=== PATIENT | female | born 1980 | race Caucasian/White ===

== ENCOUNTER 2016-11-11 01:45 | Emergency (ER) | payer OTHER ==
[~2016-11-11] VITALS: Ht 144.8 cm; Wt 69.4 kg
[~2016-11-11 01:45] MED LIST: ADVIL; EXCEDRINE
[2016-11-11 01:51] VITALS: BP 122/69
--- NOTE | 2016-11-11 04:37 | NUR ---
PATIENT LEFT WITHOUT BEING SEEN BY DR. UNGER. NO FURTHER CARE PROVIDED FOR PATIENT.
== END 2016-11-11 04:37 | disposition left against medical advice (07) ==
LOC: MED 01:45
DX: K08.89 Other specified disorders of teeth and supporting structures (principal); Z53.21 Procedure and treatment not carried out due to patient leaving prior to being seen by health care provider

== ENCOUNTER 2016-11-13 01:35 | Emergency (ER) | payer OTHER ==
[~2016-11-13] VITALS: Ht 144.8 cm; Wt 69.4 kg
[2016-11-13 01:42] VITALS: BP 115/76
--- NOTE | 2016-11-13 02:28 | NUR ---
Patient to bed 04.
--- NOTE | 2016-11-13 02:32 | NUR ---
PATIENT PRESENTS TO ED WITH LEFT LOWER TOOTHACHE . PT DENIES N/V/D; SKIN IS PINK/WARM/DRY; AAOX4 WITH EVEN AND STEADY GAIT; LUNGS CLEAR BL; HR EVEN AND REGULAR; PT DENIES ANY FEVER, CP, SOB, OR COUGH AT THIS TIME; PATIENT STATES PAIN OF 8/10 AT THIS TIME; VSS; PATIENT POSITIONED FOR COMFORT; HOB ELEVATED; BEDRAILS UP X2; BED DOWN. ER MD MADE AWARE OF PT STATUS.
--- NOTE | 2016-11-13 02:39 | NUR ---
Dr. Wyman evaluating patient at bedside.
[2016-11-13 03:07] VITALS: BP 115/76
== END 2016-11-13 03:08 | disposition home or self-care (01) ==
LOC: MED 01:35
DX: K04.7 Periapical abscess without sinus (principal)

== ENCOUNTER 2022-06-23 08:17 | Emergency (ER) | payer OTHER ==
[~2022-06-23] VITALS: Ht 157.5 cm; Wt 65.8 kg
[2022-06-23 08:23] VITALS: BP 131/76
--- NOTE | 2022-06-23 08:25 | NUR ---
PT BROUGHT TO ROOM FROM TRIAGE.
--- NOTE | 2022-06-23 08:40 | NUR ---
PT ASSESSED. CARE ASSUMED. PT ALERT, RESP EASY MM PINK, NO APPARENT DISTRESS
--- NOTE | 2022-06-23 08:45 | NUR ---
DR ORTIZ AT BEDSIDE
--- NOTE | 2022-06-23 09:25 | NUR ---
Patient discharged with v/s stable. Written and verbal after care instructions given and explained. Patient verbalized understanding. Ambulatory with steady gait. All questions addressed prior to discharge. Advised to follow up with PMD.
== END 2022-06-23 09:25 | disposition home or self-care (01) ==
LOC: MED 08:17
DX: M79.602 Pain in left arm (principal); R07.9 Chest pain, unspecified; F43.9 Reaction to severe stress, unspecified
CPT/HCPCS: 93005; 99283

== ENCOUNTER 2022-07-14 20:52 | Emergency (ER) | payer OTHER ==
[~2022-07-14] VITALS: Ht 149.9 cm; Wt 74.8 kg
[2022-07-14 21:53] VITALS: BP 122/72
--- NOTE | 2022-07-14 21:58 | NUR ---
FOLLOWING TRIAGE, PT SAYS, "MY BP IS OK, I'M GOING TO LEAVE. THAT IS WHAT I WAS WORRIED ABOUT" PT LWBS
== END 2022-07-14 22:00 | disposition left against medical advice (07) ==
LOC: MED 20:52
DX: R51.9 Headache, unspecified (principal); Z53.21 Procedure and treatment not carried out due to patient leaving prior to being seen by health care provider

== ENCOUNTER 2022-10-29 11:58 | Emergency (ER) | payer OTHER ==
[~2022-10-29] VITALS: Ht 149.9 cm; Wt 73.5 kg
[2022-10-29 12:02] VITALS: BP 126/93
[2022-10-29] MEDS ORDERED: MORPHINE SULFATE 4 MG/ML SYR IVP ONE (12:35)
[2022-10-29] MEDS ORDERED: NACL 0.9% 1,000 ML IV ONE (12:35)
[2022-10-29] MEDS ORDERED: ONDANSETRON 4 MG/2 ML VIAL IVP ONE (12:35)
--- NOTE | 2022-10-29 12:53 | NUR ---
41 yo/f presents to ed w c/o epigastric pain 8/10 pressure constant x1 day non-rad, +n/v (no blood noted), + constipation. denies fevers, chest pain or sob. pmh: denies allergies: denies
[2022-10-29 13:04] LABS: APPEARANCE,URINE CLEAR (CLEAR); BILIRUBIN,URINE 1+ (NEGATIVE); BLOOD, URINE 3+ (NEGATIVE); COLOR,URINE YELLOW (YELLOW); LEUKOCYTE ESTERASE ,URINE TRACE (NEGATIVE); NITRITE, URINE NEGATIVE (NEGATIVE); UGLUCOSE NEGATIVE (NEGATIVE)
[2022-10-29 13:05] LABS: BASOPHILS % (AUTO) 0.4 % (0.0-2.0); EOSINOPHILS # (AUTO) 0.6 K/uL (0-0.4); HEMATOCRIT 43.5 % (36-48); HEMOGLOBIN 14.5 g/dL (12.0-16.0); LYMPHOCYTES # (AUTO) 0.8 K/uL (2.5-16.5); LYMPHOCYTES % (AUTO) 13.8 % (20.5-51.1); MEAN CORPUSCULAR HEMOGLOBIN 29 pg (27-31); MEAN CORPUSCULAR HGB CONC 34 g/dL (33-37); MEAN CORPUSCULAR VOLUME 85.3 fL (80-94); MONOCYTES # (AUTO) 0.5 K/uL (0.8-1.0); MONOCYTES % (AUTO) 7.5 % (1.7-9.3); NEUTROPHILS # (AUTO) 4.2 K/uL (1.8-7.7); NEUTROPHILS % (AUTO) 69.3 % (42.2-75.2); PLATELET COUNT (AUTO) 432 K/uL (140-450); RED CELL DISTRIBUTION WIDTH 13.1 % (11.6-13.7); WHITE BLOOD COUNT (AUTO) 6.1 K/uL (4.8-10.8)
[2022-10-29 13:10] VITALS: BP 113/64
--- NOTE | 2022-10-29 13:11 | NUR ---
pt refusing [id number], requesting a diff type of pain med, zully patricia aware.
[2022-10-29 13:24] LABS: ALBUMIN 3.5 g/dL (3.4-5.0); ANION GAP 10.7 (8-16); CARBON DIOXIDE 25.7 mmol/L (21-32); CREATININE 0.6 mg/dL (0.6-1.3); POTASSIUM 3.4 mmol/L (3.5-5.1); TOTAL BILIRUBIN 0.5 mg/dL (0.0-1.0)
[2022-10-29] MEDS ORDERED: POLY17PD72 PO (13:29)
[2022-10-29] MEDS ORDERED: DOCU-299 PO (13:29)
[2022-10-29] MEDS ORDERED: CEPH-588 PO (13:30)
[2022-10-29] MEDS ORDERED: KETOROLAC 15 MG/ML VIAL IVP ONE (13:35)
--- NOTE | 2022-10-29 14:41 | NUR ---
IV removed, catheter intact and site benign. Applied folded 4x4 gauze and tape to stop bleeding.
--- NOTE | 2022-10-29 14:43 | NUR ---
Patient discharged with v/s stable. Written and verbal after care instructions given and explained. Patient alert, oriented and verbalized understanding of instructions. Ambulatory with steady gait. All questions addressed prior to discharge. ID band removed. Patient advised to follow up with PMD. Rx of KEFLEX, COLACE, CLEARLAX given. Patient educated on indication of medication including possible reaction and side effects. Opportunity to ask questions provided and answered.
== END 2022-10-29 14:41 | disposition home or self-care (01) ==
LOC: MED 11:58
DX: K59.00 Constipation, unspecified (principal); N39.0 Urinary tract infection, site not specified; Z79.899 Other long term (current) drug therapy; Z79.2 Long term (current) use of antibiotics
CPT/HCPCS: 36415; 80053; 81001; 81025; 83690; 85025; 87086; 96361; 96374; 96375; 99284; J1885; J2405; J7030; 99285; J2270

== ENCOUNTER 2022-11-02 09:23 | Emergency (ER) | payer OTHER ==
[~2022-11-02] VITALS: Ht 149.9 cm; Wt 71.7 kg
[~2022-11-02 09:23] MED LIST changes: -ADVIL; +CEPH-588 PO; +DOCU-299 PO; -EXCEDRINE; +POLY17PD72 PO
[2022-11-02 09:25] VITALS: BP 121/57
[2022-11-02 10:17] LABS: BASOPHILS % (AUTO) 0.4 % (0.0-2.0); EOSINOPHILS # (AUTO) 0.4 K/uL (0-0.4); EOSINOPHILS % (AUTO) 6.9 % (0.0-4.0); HEMATOCRIT 43.5 % (36-48); HEMOGLOBIN 14.7 g/dL (12.0-16.0); LYMPHOCYTES # (AUTO) 1.2 K/uL (2.5-16.5); LYMPHOCYTES % (AUTO) 19.3 % (20.5-51.1); MEAN CORPUSCULAR HEMOGLOBIN 29 pg (27-31); MEAN CORPUSCULAR HGB CONC 34 g/dL (33-37); MEAN CORPUSCULAR VOLUME 84.8 fL (80-94); MONOCYTES # (AUTO) 0.4 K/uL (0.8-1.0); MONOCYTES % (AUTO) 6.1 % (1.7-9.3); NEUTROPHILS # (AUTO) 4.3 K/uL (1.8-7.7); NEUTROPHILS % (AUTO) 67.3 % (42.2-75.2); PLATELET COUNT (AUTO) 468 K/uL (140-450); RED BLOOD CELL COUNT(AUTO) 5.13 MIL/uL (4.20-5.40); RED CELL DISTRIBUTION WIDTH 13.1 % (11.6-13.7); WHITE BLOOD COUNT (AUTO) 6.4 K/uL (4.8-10.8)
[2022-11-02 10:27] LABS: APPEARANCE,URINE CLEAR (CLEAR); BILIRUBIN,URINE 1+ (NEGATIVE); BLOOD, URINE 1+ (NEGATIVE); COLOR,URINE YELLOW (YELLOW); LEUKOCYTE ESTERASE ,URINE 2+ (NEGATIVE); NITRITE, URINE NEGATIVE (NEGATIVE); UGLUCOSE NEGATIVE (NEGATIVE)
[2022-11-02 10:44] LABS: RBC,URINE 0-5 /HPF (0-5)
[2022-11-02 10:47] LABS: ALBUMIN 3.8 g/dL (3.4-5.0); ANION GAP 9.8 (8-16); CARBON DIOXIDE 28.7 mmol/L (21-32); CREATININE 0.8 mg/dL (0.6-1.3); POTASSIUM 4.5 mmol/L (3.5-5.1); TOTAL BILIRUBIN 0.6 mg/dL (0.0-1.0)
[2022-11-02] MEDS ORDERED: ALUMINUM HYD/MAG/SIMETHICONE 30 ML UDC PO ONE (11:25)
[2022-11-02] MEDS ORDERED: DICYCLOMINE 10 MG CAP PO ONE (11:25)
--- NOTE | 2022-11-02 11:52 | NUR ---
us at bedside
[2022-11-02] MEDS ORDERED: SUCR1TAB35 PO (13:31)
[2022-11-02] MEDS ORDERED: OMEP40EC23 PO (13:31)
[2022-11-02 13:38] VITALS: BP 115/80
--- NOTE | 2022-11-02 13:38 | NUR ---
Patient discharged with v/s stable. Written and verbal after care instructions given and explained. Patient alert, oriented and verbalized understanding of instructions. Ambulatory with steady gait. All questions addressed prior to discharge. ID band removed. Patient advised to follow up with PMD. Rx of KEVIN NG given. Patient educated on indication of medication including possible reaction and side effects. Opportunity to ask questions provided and answered.
== END 2022-11-02 13:38 | disposition home or self-care (01) ==
LOC: MED 09:23
DX: K80.50 Calculus of bile duct without cholangitis or cholecystitis without obstruction (principal); Z79.899 Other long term (current) drug therapy
CPT/HCPCS: 36415; 74176; 76705; 80053; 81001; 81025; 83690; 85025; 87086; 99284; Q0092

== ENCOUNTER 2023-08-25 02:59 | Emergency (ER) | payer OTHER ==
[~2023-08-25] VITALS: Ht 149.9 cm; Wt 71.2 kg
[~2023-08-25 02:59] MED LIST changes: +OMEP40EC23 PO; +SUCR1TAB35 PO
[2023-08-25 03:21] VITALS: BP 156/102; PULSE 93; RESP 18; TEMP 98.2; O2SAT 100
[2023-08-25 04:03] LABS: BILIRUBIN,URINE NEGATIVE (NEGATIVE); BLOOD, URINE NEGATIVE (NEGATIVE); COLOR,URINE YELLOW (YELLOW); LEUKOCYTE ESTERASE ,URINE TRACE (NEGATIVE); NITRITE, URINE NEGATIVE (NEGATIVE); PROTEIN,URINE NEGATIVE (NEGATIVE); UGLUCOSE NEGATIVE (NEGATIVE)
[2023-08-25 04:33] VITALS: O2SAT 100
[2023-08-25 04:37] LABS: APPEARANCE,URINE SLIGHTLY HAZY (CLEAR)
[2023-08-25 04:38] LABS: RBC,URINE NONE SEEN /HPF (0-5)
[2023-08-25 04:39] LABS: BACTERIA,URINE FEW /HPF (None Seen); SQUAMOUS EPITHELIAL CELL,UR 4-10 (MOD) /LPF (0-3 (FEW)); WBC,URINE 0-5 /HPF (0-5)
[2023-08-25] MEDS ORDERED: KETOROLAC 30 MG/ML VIAL IVP ONE (04:40)
[2023-08-25] MEDS ORDERED: NACL 0.9% 1,000 ML IV ONE (04:40)
[2023-08-25 05:07] LABS: BASOPHILS # (AUTO) 0.1 K/uL (0.00-0.22); BASOPHILS % (AUTO) 0.6 % (0.0-2.0); EOSINOPHILS # (AUTO) 0.4 K/uL (0-0.4); EOSINOPHILS % (AUTO) 3.7 % (0.0-4.0); HEMATOCRIT 41.7 % (36-48); HEMOGLOBIN 14.3 g/dL (12.0-16.0); LYMPHOCYTES # (AUTO) 1.7 K/uL (2.5-16.5); LYMPHOCYTES % (AUTO) 15.5 % (20.5-51.1); MEAN CORPUSCULAR HEMOGLOBIN 29 pg (27-31); MEAN CORPUSCULAR HGB CONC 34 g/dL (33-37); MEAN CORPUSCULAR VOLUME 85.2 fL (80-94); MONOCYTES # (AUTO) 0.6 K/uL (0.8-1.0); MONOCYTES % (AUTO) 5.3 % (1.7-9.3); NEUTROPHILS % (AUTO) 74.9 % (42.2-75.2); PLATELET COUNT (AUTO) 459 K/uL (140-450); RED CELL DISTRIBUTION WIDTH 13.4 % (11.6-13.7); WHITE BLOOD COUNT (AUTO) 10.7 K/uL (4.8-10.8)
[2023-08-25] MEDS ORDERED: DICYCLOMINE HCL LIQUID 20 MG, ALUMINUM HYD/MAG/SIMETHICONE 30 ML, LIDOCAINE VISCOUS 2% ... PO ONE ×3 (05:15)
[2023-08-25 05:18] LABS: ALBUMIN 3.2 g/dL (3.4-5.0); ANION GAP 8.4 (8-16); CALCIUM 8.5 mg/dL (8.5-10.1); CARBON DIOXIDE 30.9 mmol/L (21-32); CREATININE 0.7 mg/dL (0.6-1.3); POTASSIUM 4.3 mmol/L (3.5-5.1); TOTAL BILIRUBIN 0.2 mg/dL (0.0-1.0); TOTAL PROTEIN, SERUM 7.5 g/dL (6.4-8.2)
[2023-08-25] MEDS ORDERED: ALUMINUM HYD/MAG/SIMETHICONE 30 ML UDC ONE (05:35)
[2023-08-25] MEDS ORDERED: DICYCLOMINE HCL LIQUID 10 MG/5 ML UDC ONE (05:35)
[2023-08-25] MEDS ORDERED: SIMETHICONE 40 MG/0.6 ML PO ONE (06:05)
[2023-08-25] MEDS ORDERED: DOCU-299 PO (06:09)
[2023-08-25] MEDS ORDERED: FAMO-90 PO (06:09)
== END 2023-08-25 06:21 | disposition home or self-care (01) ==
LOC: MED 02:59
DX: K80.50 Calculus of bile duct without cholangitis or cholecystitis without obstruction (principal); K29.70 Gastritis, unspecified, without bleeding; K59.00 Constipation, unspecified; K80.20 Calculus of gallbladder without cholecystitis without obstruction; Z79.899 Other long term (current) drug therapy
CPT/HCPCS: 36415; 80053; 81001; 83690; 84703; 85025; 96361; 96374; 99283; J1885; J7030